=== PATIENT | female | born 1965 | race Caucasian/White ===

== ENCOUNTER → 2017-02-23 | Outpatient (CLI) | payer OTHER | LOC: KOH-I 12:29 | DX: M25.511 Pain in right shoulder (principal); M75.101 Unspecified rotator cuff tear or rupture of right shoulder, not specified as traumatic | CPT/HCPCS: 73221 ==

== ENCOUNTER 2021-06-25 15:21 | Inpatient (IN) | payer BC ==
[~2021-06-25] VITALS: Ht 167.6 cm; Wt 99.0 kg
[2021-06-25 15:53] LABS: RED BLOOD COUNT 4.56 M/UL (4.00-5.10); WHITE BLOOD COUNT 5.3 K/UL (4.5-11.0)
[2021-06-26] MEDS ORDERED: LASIX20 MG PO (00:33)
[2021-06-26] MEDS ORDERED: LANTUS SOL100 UNIT/1 SQ (00:33)
[2021-06-26] MEDS ORDERED: LIPITOR10 MG PO (00:34)
[2021-06-26] MEDS ORDERED: TRULICITY1.5 MG/0.5 SQ (00:34)
[2021-06-26 03:15] LABS: BUN/CREATININE RATIO 39 (0-10)
[2021-06-26 03:34] LABS: HEMOGLOBIN 12.2 gm/dl (12.3-15.3); RED BLOOD COUNT 4.51 M/UL (4.00-5.10)
[2021-06-26 04:20] LABS: WHITE BLOOD COUNT 3.9 K/UL (4.5-11.0)
--- NOTE | 2021-06-26 17:31 | NUR ---
1630: PATIENT ARRIVED TO 2123. PATIENT STABEL AND ON BIPAP.
[2021-06-27 05:23] LABS: RED BLOOD COUNT 4.21 M/UL (4.00-5.10)
[2021-06-27 05:44] LABS: WHITE BLOOD COUNT 7.3 K/UL (4.5-11.0)
--- NOTE | 2021-06-27 11:20 | NUR ---
PATIENT GLUCOSE IS 433. DR. QUEEN NOTIFIED AND ORDERED 10 UNITS OF LANTUS AND 15 UNITS OF HUMALOG.
[2021-06-28 06:08] LABS: HEMOGLOBIN 13.2 gm/dl (12.3-15.3); RED BLOOD COUNT 4.63 M/UL (4.00-5.10)
[2021-06-28 06:15] LABS: WHITE BLOOD COUNT 10.1 K/UL (4.5-11.0)
[2021-06-29 06:24] LABS: HEMOGLOBIN 12.5 gm/dl (12.3-15.3); RED BLOOD COUNT 4.41 M/UL (4.00-5.10); WHITE BLOOD COUNT 8.8 K/UL (4.5-11.0)
[2021-06-30 07:16] LABS: HEMOGLOBIN 12.3 gm/dl (12.3-15.3); RED BLOOD COUNT 4.57 M/UL (4.00-5.10); WHITE BLOOD COUNT 8.9 K/UL (4.5-11.0)
[2021-07-01 06:46] LABS: HEMOGLOBIN 12.3 gm/dl (12.3-15.3); RED BLOOD COUNT 4.54 M/UL (4.00-5.10); WHITE BLOOD COUNT 8.8 K/UL (4.5-11.0)
[2021-07-01 07:20] LABS: BUN/CREATININE RATIO 45 (0-10)
[2021-07-02 03:11] LABS: HEMOGLOBIN 12.6 gm/dl (12.3-15.3); RED BLOOD COUNT 4.46 M/UL (4.00-5.10); WHITE BLOOD COUNT 7.6 K/UL (4.5-11.0)
[2021-07-02 03:49] LABS: BUN/CREATININE RATIO 38 (0-10)
[2021-07-03 06:43] LABS: HEMOGLOBIN 12.1 gm/dl (12.3-15.3); RED BLOOD COUNT 4.29 M/UL (4.00-5.10); WHITE BLOOD COUNT 7.3 K/UL (4.5-11.0)
[2021-07-03 07:20] LABS: BUN/CREATININE RATIO 36 (0-10)
[2021-07-04 07:03] LABS: BUN/CREATININE RATIO 38 (0-10)
[2021-07-05 05:54] LABS: RED BLOOD COUNT 4.3 M/UL (4.00-5.10)
[2021-07-05 06:32] LABS: BUN/CREATININE RATIO 35 (0-10)
--- NOTE | 2021-07-05 10:56 | NUR ---
received several phone call from telemetry of patient pulse ox ranging to [phone]. patient was moving around at the time pulse ox was low. encourage patient to perform deep breathing and use incentive spirometer. notified trent oshea of the above incident and verb if continous to notify respiratory therapis to cornelio still. patient currently watching tv at this time
[2021-07-06 07:47] LABS: BUN/CREATININE RATIO 30 (0-10)
[2021-07-07 05:47] LABS: HEMOGLOBIN 11.9 gm/dl (12.3-15.3); RED BLOOD COUNT 4.27 M/UL (4.00-5.10); WHITE BLOOD COUNT 10.6 K/UL (4.5-11.0)
[2021-07-07 06:08] LABS: BUN/CREATININE RATIO 31 (0-10)
[2021-07-09 05:57] LABS: BUN/CREATININE RATIO 31 (0-10)
[2021-07-09] MEDS ORDERED: LOPRESSOR 25 MG25 MG PO (12:45)
[2021-07-09] MEDS ORDERED: MEDROL DOSEPAK 24 MG PO (12:45)
[2021-07-09] MEDS ORDERED: PROAIR HFA8.5 GM INH (12:45)
[2021-07-09] MEDS ORDERED: LANTUS INS100 UTS/M1 SQ (12:49)
[2021-07-09] MEDS ORDERED: HUMALOG 10100 UNITS/ SC (12:49)
== END 2021-07-09 16:03 | disposition home or self-care (01) | DRG 871 ==
LOC: ER1 15:21 → CDU 17:10 → M/S 17:10 → CCU 17:10 → PROG CARE 23:50 → CCU 06-26 14:39 → M/S 06-28 16:29
PROVIDERS: Internal Medicine; Internal Medicine Pulmonary Disease; Preventive Medicine Occupational Medicine; ADMIT Internal Medicine
PROC: 8E0ZXY6 Isolation (ICD-10-PCS; principal; 2021-06-25)
PROC: XW033E5 Introduction of Remdesivir Anti-infective into Peripheral Vein, Percutaneous Approach, New Technology Group 5 (ICD-10-PCS; 2021-06-25)
PROC: 3E0333Z Introduction of Anti-inflammatory into Peripheral Vein, Percutaneous Approach (ICD-10-PCS; 2021-06-25)
PROC: 5A09557 Assistance with Respiratory Ventilation, Greater than 96 Consecutive Hours, Continuous Positive Airway Pressure (ICD-10-PCS; 2021-06-25)
PROC: XW033G5 Introduction of Sarilumab into Peripheral Vein, Percutaneous Approach, New Technology Group 5 (ICD-10-PCS; 2021-06-26)
PROC: XW13325 Transfusion of Convalescent Plasma (Nonautologous) into Peripheral Vein, Percutaneous Approach, New Technology Group 5 (ICD-10-PCS; 2021-06-27)
DX: A41.89 Other specified sepsis (principal); U07.1 COVID-19; J12.82 Pneumonia due to coronavirus disease 2019; J80 Acute respiratory distress syndrome; J15.9 Unspecified bacterial pneumonia; E87.2 Acidosis; N17.9 Acute kidney failure, unspecified; I10 Essential (primary) hypertension; E66.9 Obesity, unspecified; E11.65 Type 2 diabetes mellitus with hyperglycemia; Z79.4 Long term (current) use of insulin; Z79.899 Other long term (current) drug therapy; Z68.35 Body mass index [BMI] 35.0-35.9, adult
CPT/HCPCS: 36415; 36600; 71045; 71046; 80048; 80053; 82550; 82553; 82728; 82803; 82962; 83036; 83605; 83615; 83690; 83735; 83874; 84100; 84484; 85025; 85027; 85379; 85384; 85652; 86140; 86900; 86901; 86927; 87449; 93005; 94640; 94660; 94760; 96374; 97116-GP-CQ; 97162; 97530-GP-CQ; 99285; C9113; J0692; J1100; J1650; J1940; J2543; J7030; U0002

== ENCOUNTER → 2021-07-23 | Outpatient (CLI) | payer BC ==
[~2021-07-23] MED LIST: HUMALOG 10100 UNITS/ SC; LANTUS INS100 UTS/M1 SQ; LANTUS SOL100 UNIT/1 SQ; LASIX20 MG PO; LIPITOR10 MG PO; LOPRESSOR 25 MG25 MG PO; MEDROL DOSEPAK 24 MG PO; PROAIR HFA8.5 GM INH; TRULICITY1.5 MG/0.5 SQ
== END ==
LOC: EXRD 10:16
DX: J96.01 Acute respiratory failure with hypoxia (principal)
CPT/HCPCS: 71046

== ENCOUNTER → 2021-07-30 | Outpatient (CLI) | payer BC, OTHER | LOC: KOH-I 15:23 | DX: B94.8 Sequelae of other specified infectious and parasitic diseases (principal) | CPT/HCPCS: 71250 ==

== ENCOUNTER → 2021-08-30 | Outpatient (CLI) | payer BC, OTHER | LOC: RAD 10:36 | DX: U09.9 Post COVID-19 condition, unspecified (principal); R91.8 Other nonspecific abnormal finding of lung field | CPT/HCPCS: 71046 ==

== ENCOUNTER → 2021-08-30 | Outpatient (CLI) | payer BC, OTHER | LOC: HEART 5 13:08 | DX: J84.10 Pulmonary fibrosis, unspecified (principal) | CPT/HCPCS: 94060; 94729 ==

== ENCOUNTER → 2021-12-31 | Outpatient (CLI) | payer BC, OTHER | LOC: KOH-I 12:24 | DX: J84.10 Pulmonary fibrosis, unspecified (principal) | CPT/HCPCS: 71250 ==